=== PATIENT | male | born 1970 | race Two or more races ===

== ENCOUNTER 2016-10-07 12:56 | Inpatient (IN) | payer OTHER ==
[~2016-10-07] VITALS: Ht 170.2 cm; Wt 70.7 kg
[~2016-10-07 12:56] MED LIST: CLEO300C2 PO; SULF-154 PO; VALT1TAB26 PO
[2016-10-07 13:00] VITALS: BP 154/92; PULSE 81; RESP 16; TEMP 99.4; O2SAT 99
[2016-10-07] MEDS ORDERED: SODIUM CHLOR 0.9% 1000 ML INJ 1,000 ML IV SCH (13:37)
--- NOTE | 2016-10-07 13:41 | PD ---
HPI Chief Complaint: Abdominal Pain Time Seen by Provider: 13:36 Travel History International Travel<30 days: No Contact w/Intl Traveler<30days: No Traveled to known affect area: No History of Present Illness HPI 45-year-old male patient presents to the ER with a few days history of 5 out of 10 periumbilical abdominal pains with 2 days of constipation and one episode of vomiting this morning. He denies any fevers or any other issues. Modifying Factors: None Associated Signs & Symptoms: Her vocal pains, nausea, vomiting, constipation for 2 days Risk Factors: None PFSH Past Medical History Hx Anticoagulant Therapy: No Diabetes: No Diminished Hearing: No Influenza Vaccination: No Past Surgical History Eye Surgery: Yes (BILAT LASIK) Social History Alcohol Use: No Tobacco Use: No Substance Use: No Allergies-Medications (Allergen,Severity, Reaction): Coded Allergies: No Known Allergies (Verified , 10/07/16) Reported Meds & Prescriptions Reported Meds & Active Scripts Active No Active Prescriptions or Reported Medications Review of Systems Except as stated in HPI: all other systems reviewed are Neg Physical Exam Narrative GENERAL: Well-nourished, well-developed middle age male patient in no acute distress. SKIN: Warm and dry. HEAD: Normocephalic. EYES: No scleral icterus. No injection or drainage. NECK: Supple, trachea midline. CARDIOVASCULAR: Regular rate and rhythm without murmurs, gallops, or rubs. RESPIRATORY: Breath sounds equal bilaterally. No accessory muscle use. GASTROINTESTINAL: Abdomen soft, mild umbilical tenderness without guarding or rebound, nondistended. MUSCULOSKELETAL: No cyanosis, or edema. BACK: Nontender without obvious deformity. No CVA tenderness. Data Data Last Documented VS Vital Signs Date Time Temp Pulse Resp B/P Pulse Ox O2 Delivery O2 Flow Rate FiO2 10/07/16 14:33 97 10/07/16 13:12 18 10/07/16 13:00 99.4 81 154/92 Orders Complete Blood Count With Diff (10/07/16 13:37) Comprehensive Metabolic Panel (10/07/16 13:37) Lipase (10/07/16 13:37) Urinalysis - C+S If Indicated (10/07/16 13:37) Ct Abd/Pel W Iv Contrast(Rout) (10/07/16 13:37) Iv Access Insert/Monitor (10/07/16 13:37) Ecg Monitoring (10/07/16 13:37) Oximetry (10/07/16 13:37) Morphine Inj (Morphine Inj) (10/07/16 13:45) Ondansetron Inj (Zofran Inj) (10/07/16 13:45) Sodium Chlor 0.9% 1000 Ml Inj (Ns 1000 M (10/07/16 13:37) Sodium Chloride 0.9% Flush (Ns Flush) (10/07/16 13:45) Iohexol 350 Inj (Omnipaque 350 Inj) (10/07/16 14:33) Morphine Inj (Morphine Inj) (10/07/16 15:30) Labs Laboratory Tests Test 10/07/16 10/07/16 13:45 14:44 White Blood Count 9.9 TH/MM3 Red Blood Count 4.72 MIL/MM3 Hemoglobin 14.0 GM/DL Hematocrit 40.6 % Mean Corpuscular Volume 86.1 FL Mean Corpuscular Hemoglobin 29.6 PG Mean Corpuscular Hemoglobin 34.4 % Concent Red Cell Distribution Width 12.8 % Platelet Count 177 TH/MM3 Mean Platelet Volume 8.9 FL Neutrophils (%) (Auto) 85.6 % Lymphocytes (%) (Auto) 5.5 % Monocytes (%) (Auto) 7.0 % Eosinophils (%) (Auto) 0.0 % Basophils (%) (Auto) 1.9 % Neutrophils # (Auto) 8.5 TH/MM3 Lymphocytes # (Auto) 0.5 TH/MM3 Monocytes # (Auto) 0.7 TH/MM3 Eosinophils # (Auto) 0.0 TH/MM3 Basophils # (Auto) 0.2 TH/MM3 CBC Comment DIFF FINAL Differential Comment Sodium Level 142 MEQ/L Potassium Level 3.9 MEQ/L Chloride Level 105 MEQ/L Carbon Dioxide Level 26.8 MEQ/L Anion Gap 10 MEQ/L Blood Urea Nitrogen 11 MG/DL Creatinine 1.20 MG/DL Estimat Glomerular Filtration 66 ML/MIN Rate Random Glucose 116 MG/DL Calcium Level 9.0 MG/DL Total Bilirubin 0.5 MG/DL Aspartate Amino Transf 18 U/L (AST/SGOT) Alanine Aminotransferase 25 U/L (ALT/SGPT) Alkaline Phosphatase 103 U/L Total Protein 7.9 GM/DL Albumin 3.9 GM/DL Lipase 235 U/L Urine Collection Type CLEAN CATCH Urine Color YELLOW Urine Turbidity CLEAR Urine pH 6.0 Urine Specific [place] 1.025 Urine Protein NEG mg/dL Urine Glucose (UA) NEG mg/dL Urine Ketones 40 mg/dL Urine Occult Blood LARGE Urine Nitrite NEG Urine Bilirubin NEG Urine Leukocyte Esterase NEG Urine RBC 25-49 /hpf Urine Squamous Epithelial 0-5 /hpf Cells Urine Hyaline Casts 0-2 /lpf Microscopic Urinalysis Comment CULT NOT INDICATED Urine Collection Time 14:44 [facility] Medical Decision Making Medical Screen Exam Complete: Yes Emergency Medical Condition: Yes Medical Record Reviewed: Yes Interpretation(s) Laboratory Tests Test 10/07/16 10/07/16 13:45 14:44 Neutrophils (%) (Auto) 85.6 % (16.0-70.0) Lymphocytes (%) (Auto) 5.5 % (9.0-44.0) Neutrophils # (Auto) 8.5 TH/MM3 (1.8-7.7) Lymphocytes # (Auto) 0.5 TH/MM3 (1.0-4.8) Estimat Glomerular Filtration 66 ML/MIN (>89) Rate Random Glucose 116 MG/DL (74-106) Urine Ketones 40 mg/dL (NEG) Urine Occult Blood LARGE (NEG) Urine RBC 25-49 /hpf (0-3) Differential Diagnosis Abdominal pains, nausea, vomiting, constipationconstipation versus gastroenteritis versus obstruction versus pancreatitis versus gastritis versus other acute intra-abdominal processes Narrative Course Lab work indicates hematuria. CT was done which shows a right renal colic. In addition, patient has air-fluid levels indicative of underlying ileus. At this point, my plan would be to admit the patient for observation for ileus. Pain med initiated in the ER. Case is discussed with Dr. Garg for admission. Diagnosis Primary Impression: Renal colic on right side Additional Impression: ILEUS, UNSPECIFIED Admitting Information Admitting Physician Requests: Admit Scripts No Active Prescriptions or Reported Meds Poonam Finley MD Oct 07, 2016 13:41 Poonam Finley MD Oct 07, 2016 13:41
[2016-10-07] MEDS ORDERED: MORPHINE SULFATE 4 MG/ML INJ IV PUSH ONE ×2 (13:45→15:30)
[2016-10-07] MEDS ORDERED: ONDANSETRON HCL 4 MG/2 ML VIAL IVP ONE (13:45)
[2016-10-07 13:58] LABS: AUTOMATED NEUTROPHIL # 8.5 TH/MM3 (1.8-7.7); BASOPHIL # 0.2 TH/MM3 (0-0.2); BASOPHIL % 1.9 % (0.0-2.0); HEMATOCRIT 40.6 % (39.0-51.0); LYMPH % 5.5 % (9.0-44.0); LYMPHOCYTE # 0.5 TH/MM3 (1.0-4.8); MEAN CELL VOLUME 86.1 FL (80.0-100.0); MEAN CORPUSCULAR HEMOGLOBIN 29.6 PG (27.0-34.0); MEAN CORPUSCULAR HGB CONC 34.4 % (32.0-36.0); NEUT % 85.6 % (16.0-70.0); PLATELET COUNT 177 TH/MM3 (150-450); RED BLOOD COUNT 4.72 MIL/MM3 (4.50-5.90); RED CELL DISTRIBUTION WIDTH 12.8 % (11.6-17.2); WHITE BLOOD COUNT 9.9 TH/MM3 (4.0-11.0)
[2016-10-07] MEDS: SODIUM CHLORIDE 0.9% FLUSH 5 ML FLUSH IVF PRN ×2 (13:59→15:31)
[2016-10-07 14:02] LABS: HEMO FLAGS DIFF FINAL
[2016-10-07 14:10] LABS: CHLORIDE 105 MEQ/L (98-107); POTASSIUM 3.9 MEQ/L (3.5-5.1); SODIUM (NA) 142 MEQ/L (136-145)
[2016-10-07 14:13] LABS: ANION GAP 10 MEQ/L (5-15); BICARBONATE 26.8 MEQ/L (21.0-32.0)
[2016-10-07 14:14] LABS: BLOOD UREA NITROGEN 11 MG/DL (7-18)
[2016-10-07 14:16] LABS: ALT (GPT) 25 U/L (12-78); AST (GOT) 18 U/L (15-37)
[2016-10-07 14:17] LABS: GLOMERULAR FILTRATION RATE 66 ML/MIN (>89)
[2016-10-07 14:18] LABS: TOTAL BILIRUBIN ADULT 0.5 MG/DL (0.2-1.0)
[2016-10-07 14:19] LABS: ALKALINE PHOSPHATASE 103 U/L (45-117)
[2016-10-07 14:33] VITALS: O2SAT 97
[2016-10-07] MEDS ORDERED: IOHEXOL 350 MG/ML 10 ML VIAL (for RAD DIAG) IV ONE (14:33)
[2016-10-07 14:50] LABS: BLOOD, URINE LARGE (NEG); GLUCOSE,URINE NEG (NEG); KETONE, URINE 40 mg/dL (NEG); NITRITE,URINE NEG (NEG)
[2016-10-07 14:54] LABS: METHOD OF COLLECTION CLEAN CATCH; URINE COLOR YELLOW (YELLW/STRAW)
[2016-10-07 14:55] LABS: COMMENT (UR) CULT NOT INDICATED; CULTURE IF INDICATED CULT NOT INDICATED; HYALINE CAST, URINE 0-2 /lpf (RARE); SQUAMOUS EPITHELIAL CELL URINE 0-5 /hpf (0-5)
--- NOTE | 2016-10-07 15:00 | RADHPO ---
EXAM DATE/TIME: 10/07/2016 14:25 [facility] COMPARISON: No previous studies available for comparison. INDICATIONS : Periumbilical pain. Constipation x 2 days. Vomiting today. IV CONTRAST: 85 cc Omnipaque 350 (iohexol) IV ORAL CONTRAST: No oral contrast ingested. RADIATION DOSE: 6.49 CTDIvol (mGy) MEDICAL HISTORY : None SURGICAL HISTORY : None. ENCOUNTER: Initial ACUITY: 2 days PAIN SCALE: 7/10 LOCATION: Periumbilical TECHNIQUE: Volumetric scanning of the abdomen and pelvis was performed. Using automated exposure control and ad justment of the mA and/or kV according to patient size, radiation dose was kept as low as reasonably achievable to obtain optimal diagnostic quality images. FINDINGS: There is acute obstructive uropathy of the right distal ureter secondary to a 4 mm calcified calculus resulting in mild ureteropelvicaliectasis. There is a tiny calcified midpole nonobstructing right r enal calculus also. Mild perinephric fluid is noted suggesting possible pyelosinus extravasation. T he left kidney is unremarkable. The liver is unremarkable without focal mass or biliary ductal dilat ation. The gallbladder is unremarkable. The spleen is normal. The pancreas is normal. The adrenal g lands are normal bilaterally. The abdominal aorta and inferior vena cava are unremarkable. Mild diff use air and fluid filled dilatation of the colon is noted suggesting mild ileus versus distal colonic obstruction. Clinical correlation is recommended. There is a focal area of either narrowing or poss ible nondistention of the rectosigmoid colon. The prostate gland is prominent. The urinary bladder is unremarkable. No pelvic ascites or pelvic lymphadenopathy is noted. The visualized lung bases demonstrate minimal posterior pleural thickening. Mild degenerative change s and scoliosis of the thoracolumbar spine are noted. CONCLUSION: 1. Acute obstructive uropathy of the right distal ureter secondary to a 4 mm calcified calculus resul ting in mild ureteropelvicaliectasis. Mild perinephric fluid is noted on the right suggesting pyelos inus extravasation also. 2. Tiny 4 mm calcified midpole nonobstructing right renal calculus. 3. Mild diffuse dilatation of the colon suggesting mild ileus or possible distal colonic obstruction. There is a focal narrowed segment of rectosigmoid colon which is indeterminate. This may be relate d to focal nondistention or real colonic lesion resulting in narrowing. Clinical correlation is bekah mmended. 4. Mild degenerative changes and scoliosis of the thoracolumbar spine. 5. Mild enlargement of the prostate gland. Clinton Christina MD on October 07, 2016 at 14:39 Board Certified Radiologist. This report was verified electronically.
[2016-10-07] MEDS ORDERED: ONDANSETRON HCL 4 MG/2 ML VIAL IVP PRN (15:45)
[2016-10-07] MEDS ORDERED: SODIUM CHLORIDE 0.9% FLUSH 5 ML FLUSH FLUSH PRN (15:45)
[2016-10-07] MEDS ORDERED: ACETAMINOPHEN 325 MG TAB PO PRN (15:45)
--- NOTE | 2016-10-07 15:54 | HHI.HP ---
[facility] Service [facility] Primary Care Physician Huy Srinivasan M.D. Admission Diagnosis right renal colic/ileus/vomiting Diagnoses: Chief Complaint: Abdominal pain Travel History International Travel<30 Days: No Contact w/Intl Traveler <30 Da: No Traveled to Known Affected Are: No History of Present Illness Patient is a very healthy 45-year-old gentleman who has come to the emergency room with 4 days of abdominal discomfort. He has not had a bowel movement in several days. He tried MiraLAX and enema with little relief. Patient did come to the emergency room after he began vomiting. He did not go to work for 2 days as he felt ill. Patient has had a CAT scan of the abdomen and pelvis with contrast which home I reviewed and show of 4 mm ureteral stone with surrounding perinephric fluid. Patient also has evidence of ileus. Leukocytes are normal, blood pressure was slightly elevated with the patient was quite a bit of pain and this improved after morphine IV. Review of Systems Constitutional: DENIES: Diaphoretic episodes, Fatigue, Fever, Weight gain, Weight loss, Chills, Dizziness, Change in appetite, Night Sweats Endocrine: DENIES: Heat/cold intolerance, Polydipsia, Polyuria, Polyphagia Eyes: DENIES: Blurred vision, Diplopia, Eye inflammation, Eye pain, Vision loss , Photosensitivity, Double Vision Ears, nose, mouth, throat: DENIES: Tinnitus, Hearing loss, Vertigo, Nasal discharge, Oral lesions, Throat pain, Hoarseness, Ear Pain, Running Nose, Epistaxis, Sinus Pain, Toothache, Odynophagia Respiratory: DENIES: Apneas, Cough, Snoring, Wheezing, Hemoptysis, Sputum production, Shortness of breath Cardiovascular: DENIES: Chest pain, Palpitations, Syncope, Dyspnea on Exertion , PND, Lower Extremity Edema, Orthopnea, Claudication Gastrointestinal: COMPLAINS OF: Abdominal pain, Nausea, Vomiting Genitourinary: DENIES: Sexual dysfunction, Urinary frequency, Urinary incontinence, Urgency, Hematuria, Dysuria, Nocturia, Penile Discharge, Testicular Pain, Testicular Swelling Musculoskeletal: DENIES: Joint pain, Muscle aches, Stiffness, Joint Swelling, Back pain, Neck pain Hematologic/lymphatic: DENIES: Bruising, Lymphadenopathy Immunologic/allergic: DENIES: Eczema, Urticaria Neurologic: DENIES: Abnormal gait, Headache, Localized weakness, Paresthesias, Seizures, Speech Problems, Tremor, Poor Balance Psychiatric: DENIES: Anxiety, Confusion, Mood changes, Depression, Hallucinations, Agitation, Suicidal Ideation, Homicidal Ideation, Delusions Past Family Social History Past Medical History Denies Past Surgical History Denies Reported Medications None Allergies: Coded Allergies: No Known Allergies (Verified , 10/07/16) Active Ordered Medications Reviewed in the medical record Family History Mother has extensive history of intestinal obstruction and multiple abdominal surgeries for the same Social History No tobacco or alcohol Employed at [employer] in [employer] activities Physical Exam Vital Signs Vital Signs Date Time Temp Pulse Resp B/P Pulse Ox O2 Delivery O2 Flow Rate FiO2 10/07/16 14:33 97 10/07/16 13:12 18 10/07/16 13:00 99.4 81 16 154/92 99 Physical Exam GENERAL: This is a well-nourished, well-developed patient, in no apparent distress. SKIN: No rashes, ecchymoses or lesions. Cool and dry. HEAD: Atraumatic. Normocephalic. No temporal or scalp tenderness. EYES: Pupils equal round and reactive. Extraocular motions intact. No scleral icterus. No injection or drainage. ENT: Nose without bleeding, purulent drainage or septal hematoma. Throat without erythema, tonsillar hypertrophy or exudate. Uvula midline. Airway patent. NECK: Trachea midline. No JVD or lymphadenopathy. Supple, nontender, no meningeal signs. CARDIOVASCULAR: Regular rate and rhythm without murmurs, gallops, or rubs. RESPIRATORY: Clear to auscultation. Breath sounds equal bilaterally. No wheezes , rales, or rhonchi. GASTROINTESTINAL: Abdomen soft, distended, hypoactive. No hepato-splenomegaly, or palpable masses. No guarding. MUSCULOSKELETAL: Extremities without clubbing, cyanosis, or edema. No joint tenderness, effusion, or edema noted. No calf tenderness. Negative Homans sign bilaterally. NEUROLOGICAL: Awake and alert. Cranial nerves II through XII intact. Motor and sensory grossly within normal limits. Five out of 5 muscle strength in all muscle groups. Normal speech. Laboratory Laboratory Tests Test 10/07/16 10/07/16 13:45 14:44 White Blood Count 9.9 Red Blood Count 4.72 Hemoglobin 14.0 Hematocrit 40.6 Mean Corpuscular Volume 86.1 Mean Corpuscular Hemoglobin 29.6 Mean Corpuscular Hemoglobin 34.4 Concent Red Cell Distribution Width 12.8 Platelet Count 177 Mean Platelet Volume 8.9 Neutrophils (%) (Auto) 85.6 Lymphocytes (%) (Auto) 5.5 Monocytes (%) (Auto) 7.0 Eosinophils (%) (Auto) 0.0 Basophils (%) (Auto) 1.9 Neutrophils # (Auto) 8.5 Lymphocytes # (Auto) 0.5 Monocytes # (Auto) 0.7 Eosinophils # (Auto) 0.0 Basophils # (Auto) 0.2 CBC Comment DIFF FINAL Differential Comment Sodium Level 142 Potassium Level 3.9 Chloride Level 105 Carbon Dioxide Level 26.8 Anion Gap 10 Blood Urea Nitrogen 11 Creatinine 1.20 Estimat Glomerular Filtration 66 Rate Random Glucose 116 Calcium Level 9.0 Total Bilirubin 0.5 Aspartate Amino Transf 18 (AST/SGOT) Alanine Aminotransferase 25 (ALT/SGPT) Alkaline Phosphatase 103 Total Protein 7.9 Albumin 3.9 Lipase 235 Urine Collection Type CLEAN CATCH Urine Color YELLOW Urine Turbidity CLEAR Urine pH 6.0 Urine Specific [place] 1.025 Urine Protein NEG Urine Glucose (UA) NEG Urine Ketones 40 Urine Occult Blood LARGE Urine Nitrite NEG Urine Bilirubin NEG Urine Leukocyte Esterase NEG Urine RBC 25-49 Urine Squamous Epithelial 0-5 Cells Urine Hyaline Casts 0-2 Microscopic Urinalysis Comment CULT NOT INDICATED Urine Collection Time 14:44 Result Diagram: 10/07/16 1345 10/07/16 1345 Imaging Last Impressions Abdomen/Pelvis CT 10/07/16 1337 Signed Impressions: Service Date/Time: Friday, October 07, 2016 14:25 - CONCLUSION: 1. Acute obstructive uropathy of the right distal ureter secondary to a 4 mm calcified calculus resulting in mild ureteropelvicaliectasis. Mild perinephric fluid is noted on the right suggesting pyelosinus extravasation also. 2. Tiny 4 mm calcified midpole nonobstructing right renal calculus. 3. Mild diffuse dilatation of the colon suggesting mild ileus or possible distal colonic obstruction. There is a focal narrowed segment of rectosigmoid colon which is indeterminate. This may be related to focal nondistention or real colonic lesion resulting in narrowing. Clinical correlation is recommended. 4. Mild degenerative changes and scoliosis of the thoracolumbar spine. 5. Mild enlargement of the prostate gland. Clinton Christina MD Assessment and Plan Problem List: (1) Abdominal pain ICD Code: R10.9 Status: Acute Plan: Patient with ileus versus early obstruction May be due to right renal stone Continue with nothing by mouth, IV fluids, IV morphine and monitor progress Abdomen films in Consuelo Ascencio MD Oct 07, 2016 15:53
[2016-10-07] MEDS ORDERED: cefTRIAXone INJ 1,000 MG in SODIUM CHLORIDE 0.9% INJ 100 ML IV SCH (16:00)
[2016-10-07] MEDS: SODIUM CHLOR 0.9% 1000 ML INJ 1,000 ML IV SCH (16:14)
[2016-10-07 17:00] VITALS: BP 134/85; PULSE 72; RESP 18; TEMP 97.8; O2SAT 98
[2016-10-07] MEDS ORDERED: ACETAMINOPHEN/HYDROcodone 325 MG/5 MG TAB PO PRN (21:00)
[2016-10-07 21:16] VITALS: BP 144/87; PULSE 73; RESP 16; TEMP 97.2; O2SAT 96
[2016-10-07] MEDS: MORPHINE SULFATE 4 MG/ML INJ IV PUSH PRN (21:23)
[2016-10-07] MEDS: SODIUM CHLORIDE 0.9% FLUSH 5 ML FLUSH FLUSH SCH (21:24)
[2016-10-08 00:25] VITALS: BP 112/62; PULSE 70; RESP 16; TEMP 97.8; O2SAT 95
[2016-10-08] MEDS: MORPHINE SULFATE 4 MG/ML INJ IV PUSH PRN ×3 (03:16→09:28)
[2016-10-08 04:00] VITALS: BP 134/78; PULSE 73; RESP 18; TEMP 97.8; O2SAT 94
[2016-10-08 08:00] VITALS: BP 126/75; PULSE 79; RESP 16; TEMP 99; O2SAT 95
--- NOTE | 2016-10-08 08:52 | RADHPO ---
EXAM DATE/TIME: 10/08/2016 08:36 [facility] COMPARISON: No previous studies available for comparison. INDICATIONS : Abdomen pain MEDICAL HISTORY : None. SURGICAL HISTORY : None. ENCOUNTER: Subsequent ACUITY: 2 days PAIN SCORE: 10/10 LOCATION: Bilateral abdomen FINDINGS: Supine and upright views of the abdomen were performed. The abdominal bowel gas pattern is normal. No air fluid levels are seen. No abnormal masses, calcifications, or organomegaly is seen. The visu alized lower lungs are clear. No evidence of free intraperitoneal gas. The osseous structures are u nremarkable. CONCLUSION: Normal examination with a prominent amount of air scattered throughout the colon. Hao Juarez MD on October 08, 2016 at 8:50 Board Certified Radiologist. This report was verified electronically.
[2016-10-08] MEDS: SODIUM CHLORIDE 0.9% FLUSH 5 ML FLUSH FLUSH SCH ×2 (09:00→21:33)
[2016-10-08] MEDS: SODIUM CHLOR 0.9% 1000 ML INJ 1,000 ML IV SCH ×2 (09:30→12:55)
[2016-10-08] MEDS ORDERED: PNEUMOCOCCAL POLYVALENT INJ 25 MCG/0.5 ML SYR IM ONE (10:00)
[2016-10-08] MEDS ORDERED: INFLUENZA VIRUS VACCINE (QUADRIVALENT) 0.5 ML SYR IM ONE (10:00)
--- NOTE | 2016-10-08 11:10 | HHI.PR ---
Subjective Remarks Patient seen and evaluated today in follow-up for abdominal discomfort which appears to be due to ileus. KUB this morning unremarkable. Care plan discussed with nursing team, patient and urology by telephone. Small bowel movement and improved flatus per patient. Pain is better Objective Vitals Vital Signs Date Time Temp Pulse Resp B/P Pulse Ox O2 Delivery O2 Flow Rate FiO2 10/08/16 08:00 99.0 79 16 126/75 95 10/08/16 04:00 97.8 73 18 134/78 94 10/08/16 00:25 97.8 70 16 112/62 95 10/07/16 21:16 97.2 73 16 144/87 96 10/07/16 17:00 97.8 72 18 134/85 98 10/07/16 14:33 97 10/07/16 13:12 18 10/07/16 13:00 99.4 81 16 154/92 99 I/O 10/07/16 10/07/16 10/07/16 10/08/16 10/08/16 10/08/16 07:00 15:00 23:00 07:00 15:00 23:00 Intake Total 1000 ml Balance 1000 ml Intake IV Total 1000 ml # Voids 1 2 3 Result Diagram: 10/07/16 1345 10/07/16 1345 Imaging Last Impressions Abdomen X-Ray 10/08/16 0600 Signed Impressions: Service Date/Time: Saturday, October 08, 2016 08:36 - CONCLUSION: Normal examination with a prominent amount of air scattered throughout the colon. Hao Juarez MD Abdomen/Pelvis CT 10/07/16 1337 Signed Impressions: Service Date/Time: Friday, October 07, 2016 14:25 - CONCLUSION: 1. Acute obstructive uropathy of the right distal ureter secondary to a 4 mm calcified calculus resulting in mild ureteropelvicaliectasis. Mild perinephric fluid is noted on the right suggesting pyelosinus extravasation also. 2. Tiny 4 mm calcified midpole nonobstructing right renal calculus. 3. Mild diffuse dilatation of the colon suggesting mild ileus or possible distal colonic obstruction. There is a focal narrowed segment of rectosigmoid colon which is indeterminate. This may be related to focal nondistention or real colonic lesion resulting in narrowing. Clinical correlation is recommended. 4. Mild degenerative changes and scoliosis of the thoracolumbar spine. 5. Mild enlargement of the prostate gland. Clinton Christina MD Objective Remarks GENERAL: This is a well-nourished, well-developed patient, in no apparent distress. CARDIOVASCULAR: Regular rate and rhythm without murmurs, gallops, or rubs. RESPIRATORY: Clear to auscultation. Breath sounds equal bilaterally. No wheezes , rales, or rhonchi. GASTROINTESTINAL: Abdomen soft, non-tender, nondistended. hypo active bowel sounds MUSCULOSKELETAL: Extremities without clubbing, cyanosis, or edema. NEURO: Alert & Oriented x4 to person, place, time, situation. Moves all ext x4 A/P Problem List: (1) Abdominal pain ICD Code: R10.9 Status: Acute Plan: Patient with ileus versus early obstruction, improved May be due to right renal stone bowel regimen, Clears, IV fluids, IV morphine and monitor progress Abdomen films unremarkable To be some findings discussed with urology. Recommended Flomax, strain urine and outpatient follow-up. Consuelo Garg MD Oct 08, 2016 11:10
[2016-10-08 12:00] VITALS: BP 118/72; PULSE 64; RESP 16; TEMP 97.7; O2SAT 94
[2016-10-08] MEDS ORDERED: BISACODYL EC 5 MG TABEC PO ONE (12:00)
[2016-10-08] MEDS ORDERED: SOD PHOSPHATE/SOD BIPHOSPHATE (ADULT) ENEMA 133ML PR ONE (12:00)
[2016-10-08] MEDS: LACTULOSE SYRUP 20 GM/30 ML CUP PO SCH ×3 (12:55→21:33)
[2016-10-08 16:00] VITALS: BP 114/78; PULSE 67; RESP 16; TEMP 97.8; O2SAT 99
[2016-10-08 21:08] VITALS: BP 129/76; PULSE 76; RESP 12; TEMP 99.4; O2SAT 96
[2016-10-09] VITALS: BP 140/89; PULSE 72; RESP 16; TEMP 98; O2SAT 97
[2016-10-09] MEDS: MORPHINE SULFATE 4 MG/ML INJ IV PUSH PRN (01:45)
[2016-10-09 08:00] VITALS: BP 124/79; PULSE 73; RESP 20; TEMP 98; O2SAT 99
[2016-10-09] MEDS ORDERED: TAMSULOSIN HCL 0.4 MG CAP PO SCH (09:00)
[2016-10-09] MEDS: SODIUM CHLORIDE 0.9% FLUSH 5 ML FLUSH FLUSH SCH (09:35)
--- NOTE | 2016-10-09 09:37 | HHI.PR ---
Subjective Remarks Follow-up for ileus, ureterolithiasis. Mother at bedside. He denies any current abdominal pain but states he had right sided pain last night. Denies any fevers or chills, chest pain, shortness of breath, vomiting, or diarrhea. RN present and notes stones in strainer which patient has passed. Objective Vitals Vital Signs Date Time Temp Pulse Resp B/P Pulse Ox O2 Delivery O2 Flow Rate FiO2 10/09/16 08:00 98.0 73 20 124/79 99 10/09/16 04:00 10/09/16 00:00 98.0 72 16 140/89 97 10/08/16 21:08 99.4 76 12 129/76 96 10/08/16 16:00 97.8 67 16 114/78 99 10/08/16 12:00 97.7 64 16 118/72 94 I/O 10/08/16 10/08/16 10/08/16 10/09/16 10/09/16 10/09/16 07:00 15:00 23:00 07:00 15:00 23:00 Intake Total 960 ml 0 ml 0 ml Balance 960 ml 0 ml 0 ml Intake Oral 960 ml IV Total 0 ml 0 ml # Voids 3 3 # Bowel Movements 2 Result Diagram: 10/07/16 1345 10/07/16 1345 Imaging Last Impressions Abdomen X-Ray 10/08/16 0600 Signed Impressions: Service Date/Time: Saturday, October 08, 2016 08:36 - CONCLUSION: Normal examination with a prominent amount of air scattered throughout the colon. Hao Juarez MD Abdomen/Pelvis CT 10/07/16 1337 Signed Impressions: Service Date/Time: Friday, October 07, 2016 14:25 - CONCLUSION: 1. Acute obstructive uropathy of the right distal ureter secondary to a 4 mm calcified calculus resulting in mild ureteropelvicaliectasis. Mild perinephric fluid is noted on the right suggesting pyelosinus extravasation also. 2. Tiny 4 mm calcified midpole nonobstructing right renal calculus. 3. Mild diffuse dilatation of the colon suggesting mild ileus or possible distal colonic obstruction. There is a focal narrowed segment of rectosigmoid colon which is indeterminate. This may be related to focal nondistention or real colonic lesion resulting in narrowing. Clinical correlation is recommended. 4. Mild degenerative changes and scoliosis of the thoracolumbar spine. 5. Mild enlargement of the prostate gland. Clinton Christina MD Objective Remarks GENERAL: Well-nourished, well patient in no apparent distress. SKIN: Warm and dry. CARDIOVASCULAR: Regular rate and rhythm. RESPIRATORY: No accessory muscle use. Clear to auscultation. Breath sounds equal bilaterally. GASTROINTESTINAL: Normoactive bowel sounds in all 4 quadrants. Abdomen soft, non -tender, nondistended. MUSCULOSKELETAL: No lower extremity edema. BACK: No CVA tenderness bilaterally. NEUROLOGICAL: Awake and alert. Motor grossly within normal limits. Normal speech. Urinary Catheter: No Vascular Central Line Catheter: No A/P Problem List: (1) Ileus ICD Code: K56.7 Status: Acute (2) Ureterolithiasis ICD Code: N20.1 Status: Acute Assessment and Plan Abdominal pain: Resolved. CT abdomen showed mild diffuse dilatation of the colon suggesting mild ileus versus obstruction. Patient treated with laxatives, IVF. Patient had BMs and abdominal x-ray is unremarkable. CT also shows 4 mm stone in R distal ureter. Dr. Garg discussed with urology. Patient started on Flomax. Patient experienced pain on this side last night. Pain resolved after passing 9 pieces of sediment counted by RN in strainer this morning. Diet advanced Patient to follow up with urology Discussed with Dr. Garg. Discharge Planning Patient to be discharged provided he tolerates advanced diet Ksenia Nieves Oct 09, 2016 09:37
--- NOTE | 2016-10-09 11:33 | HHI.DCPOC ---
Discharge Care Plan Diagnosis: (1) Renal colic on right side (2) Ileus (3) Ureterolithiasis Goals to Promote Your Health * To prevent worsening of your condition and complications * To maintain your health at the optimal level Directions to Meet Your Goals Take your medications as prescribed Follow your dietary instruction Follow activity as directed Keep your appointments as scheduled Take your immunizations and boosters as scheduled If your symptoms worsen call your PCP, if no PCP go to Urgent Care Center or Emergency Room Smoking is Dangerous to Your Health. Avoid second hand smoke Call the 24-hour hour crisis hotline for domestic abuse at Ksenia Nieves Oct 09, 2016 11:33
[2016-10-09 12:00] VITALS: BP 119/73; PULSE 69; RESP 20; TEMP 99.4; O2SAT 98
[2016-10-09] MEDS ORDERED: TAMS5CAP PO (12:10)
[2016-10-09] MEDS ORDERED: MIRA33504 PO (12:10)
--- NOTE | 2016-10-09 12:11 | HHI.DS ---
Discharge Summary Admission Date Oct 07, 2016 at 15:34 Discharge Date: Oct 09, 2016 Admitting Diagnosis right renal colic/ileus/vomiting (1) Abdominal pain ICD Code: R10.9 Procedures None Brief History - From Admission Patient is a very healthy 45-year-old gentleman who has come to the emergency room with 4 days of abdominal discomfort. He has not had a bowel movement in several days. He tried MiraLAX and enema with little relief. Patient did come to the emergency room after he began vomiting. He did not go to work for 2 days as he felt ill. Patient has had a CAT scan of the abdomen and pelvis with contrast which home I reviewed and show of 4 mm ureteral stone with surrounding perinephric fluid. Patient also has evidence of ileus. Leukocytes are normal, blood pressure was slightly elevated with the patient was quite a bit of pain and this improved after morphine IV. CBC/BMP: 10/07/16 1345 10/07/16 1345 Significant Findings Laboratory Tests Test 10/07/16 10/07/16 13:45 14:44 Neutrophils (%) (Auto) 85.6 % (16.0-70.0) Lymphocytes (%) (Auto) 5.5 % (9.0-44.0) Neutrophils # (Auto) 8.5 TH/MM3 (1.8-7.7) Lymphocytes # (Auto) 0.5 TH/MM3 (1.0-4.8) Estimat Glomerular Filtration 66 ML/MIN (>89) Rate Random Glucose 116 MG/DL (74-106) Urine Ketones 40 mg/dL (NEG) Urine Occult Blood LARGE (NEG) Urine RBC 25-49 /hpf (0-3) Imaging Last Impressions Abdomen X-Ray 10/08/16 0600 Signed Impressions: Service Date/Time: Saturday, October 08, 2016 08:36 - CONCLUSION: Normal examination with a prominent amount of air scattered throughout the colon. Hao Juarez MD Abdomen/Pelvis CT 10/07/16 1337 Signed Impressions: Service Date/Time: Friday, October 07, 2016 14:25 - CONCLUSION: 1. Acute obstructive uropathy of the right distal ureter secondary to a 4 mm calcified calculus resulting in mild ureteropelvicaliectasis. Mild perinephric fluid is noted on the right suggesting pyelosinus extravasation also. 2. Tiny 4 mm calcified midpole nonobstructing right renal calculus. 3. Mild diffuse dilatation of the colon suggesting mild ileus or possible distal colonic obstruction. There is a focal narrowed segment of rectosigmoid colon which is indeterminate. This may be related to focal nondistention or real colonic lesion resulting in narrowing. Clinical correlation is recommended. 4. Mild degenerative changes and scoliosis of the thoracolumbar spine. 5. Mild enlargement of the prostate gland. Clinton Christina MD PE at Discharge GENERAL: This is a well-nourished, well-developed patient, in no apparent distress. CARDIOVASCULAR: Regular rate and rhythm without murmurs, gallops, or rubs. RESPIRATORY: Clear to auscultation. Breath sounds equal bilaterally. No wheezes , rales, or rhonchi. GASTROINTESTINAL: Abdomen soft, non-tender, nondistended. hypo active bowel sounds MUSCULOSKELETAL: Extremities without clubbing, cyanosis, or edema. NEURO: Alert & Oriented x4 to person, place, time, situation. Moves all ext x4 Pt update on day of discharge Patient doing well. Good bowel movement overnight. No further abdominal pain. Tolerating diet Hospital Course Patient was seen and treated for ileus which resolved with bowel rest and regimen. He did have some kidney stones which resolved and passed through the strainer. 4 stones were seen by patient and family. Patient's discharge plans were discussed with him and his mother and he was discharged home Pt Condition on Discharge: Good Discharge Disposition: Discharge Home Discharge Time: > 30 minutes Discharge Instructions DIET: Follow Instructions for: As Tolerated, No Restrictions Activities you can perform: Regular-No Restrictions Follow up Referrals: Urology - 1 Week with Shilo Mckeon MD New Medications: Polyethylene Glycol 3350 Powder (Miralax Powder) 17 Gm Powd 17 GM PO DAILY Mix and dissolve one measuring cap-ful (17 grams) in water or juice. Constipation #1 Ref 0 BOTTLE Tamsulosin (Flomax) 0.4 Mg Cap 0.4 MG PO DAILY urology #14 Consuelo Valenzuela MD Oct 09, 2016 12:11
== END 2016-10-09 13:19 | disposition home or self-care (01) | DRG 389 ==
LOC: PHED 12:56 → PHEDA 15:34 → PH3A 17:04 → OBSVTOIN 10-08 11:10
PROVIDERS: ADMIT Hospitalist; ATTEND Hospitalist
DX: K56.7 Ileus, unspecified (principal); N20.1 Calculus of ureter; N23 Unspecified renal colic; Z23 Encounter for immunization
CPT/HCPCS: 74020; 74177; 80053; 81001; 83690; 85025; 90471; 90686; 90732; 96361; 96374; 96375; 96376; G0008; G0009; G0378; J0696; J2270; J2405; J7030; Q2038; Q9967